=== PATIENT | female | born 1990 | race Caucasian/White ===

== ENCOUNTER 2021-10-15 12:07 | Outpatient (CLI) | payer OTHER, SELFPAY ==
[2021-10-15 12:28] LABS: Add Urine Microscopic? YES; Appearance Urine Clear (Clear); Bilirubin Urine Negative (Negative); Blood Urine 1+ (Negative); Color Urine Colorless (Yellow); Glucose Urine UA Negative (Negative); Ketones Urine Negative (Negative); Leukocyte Esterase Ur Negative LEU/UL (NEGATIVE); Mucus Urine Rare /lpf; Nitrate Urine Negative (Negative); Protein Urine Negative (Negative); RBC Urine 0-2 /hpf (0-2); Urobilinogen Urine Negative mg/dL (<2.0); WBC Urine 0-3 /hpf (0-3)
[2021-10-15 12:35] LABS: Specific Grav Ur 1.003 (1.001-1.035)
== END 2021-10-15 12:08 | disposition home or self-care (01) ==
PROVIDERS: PCP Physician Assistant; Visit Provider Physician Assistant
DX: R30.0 Dysuria (principal)
CPT/HCPCS: 81001; 87086

== ENCOUNTER 2022-06-30 06:47 | Outpatient (CLI) | payer OTHER, SELFPAY ==
[2022-06-30 07:22] LABS: Basophils Percent Auto 0.4 % (0.2-1.2); Eosinophils Absolute Auto 0.1 K/mm3 (0-0.3); Eosinophils Percent Auto 0.9 % (0-4.4); Hematocrit 41.4 % (37.0-47.0); Hemoglobin 14.4 g/dL (12.0-15.0); Immature Granulocyte Absolute 0.02 K/mm3 (0.00-0.031); Immature Granulocyte Percent A 0.3 % (0-0.5); Lymphocytes Absolute Auto 2.68 K/mm3 (0.9-3.2); Lymphocytes Percent Auto 38.7 % (18.3-44.2); Mean Corpuscular HGB Conc 34.8 g/dl (32-36); Mean Corpuscular Hemoglobin 29.9 pg (26-34); Mean Corpuscular Volume 86.1 fl (80-100); Mean Platelet Volume 9.3 fl (7.4-10.4); Monocytes Absolute Auto 0.4 K/mm3 (0.1-0.6); Monocytes Percent Auto 5.2 % (2.6-8.5); Neutrophils Absolute Auto 3.8 K/mm3 (1.3-6.7); Neutrophils Percent Auto 54.5 % (45.5-73.1); Platelet Count Result 222 k/mm3 (150-375); Red Blood Count 4.81 M/mm3 (4.2-5.4); Red Cell Distribution Width 12.2 % (11.5-14.5); White Blood Count 6.9 K/mm3 (4.5-10.0)
[2022-06-30 08:27] LABS: Vitamin D 25 Hydroxy 51.9 ng/mL
[2022-06-30 09:02] LABS: Alanine Aminotransferase 19 U/L (6-35); Albumin Level 4.6 g/dL (3.5-5.1); Alkaline Phosphatase 50 U/L (38-126); Anion Gap 9 mmol/L (8-16); Aspartate Amino Transferase 22 U/L (14-36); Bilirubin,Total 0.7 mg/dL (0.2-1.3); Blood Urea Nitrogen 12 mg/dL (7-17); Calcium 8.9 mg/dL (8.4-10.2); Carbon Dioxide 25 mmol/L (22-30); Chloride 106 mmol/L (98-107); Cholesterol 182 mg/dL (0-200); Estimated Glomerular Filt Rate > 60; Glucose 96 mg/dL (65-110); HDL Direct 38 mg/dL; Potassium 4.4 mmol/L (3.4-5.0); Sodium 140 mmol/L (137-145); Triglycerides 129 mg/dL (<150)
[2022-06-30 09:30] LABS: LDL Cholesterol Direct 106 mg/dL
[2022-06-30 10:11] LABS: Folic Acid > 20.0 ng/mL (2.76->20)
== END 2022-06-30 06:48 | disposition home or self-care (01) ==
LOC: ANHLAB 06:48
PROVIDERS: PCP Physician Assistant; Visit Provider Physician Assistant
DX: E55.9 Vitamin D deficiency, unspecified (principal); Z00.00 Encounter for general adult medical examination without abnormal findings
CPT/HCPCS: 36415; 80053; 80061; 82306; 82607; 82746; 84443; 85025

== ENCOUNTER 2022-07-22 12:54 | Outpatient (CLI) | payer OTHER, SELFPAY ==
[2022-07-22 13:51] LABS: Influenza A QL RT-PCR Positive (Negative); Influenza B QL RT-PCR Negative (Negative); RSV RNA, RT-PCR Negative (Negative); SARS-CoV-2 RNA PCR Negative
== END 2022-07-22 12:55 | disposition home or self-care (01) ==
LOC: ANHLAB 12:56
PROVIDERS: PCP Physician Assistant; Visit Provider Physician Assistant
DX: R68.89 Other general symptoms and signs (principal); Z20.822 Contact with and (suspected) exposure to COVID-19
CPT/HCPCS: 87637

== ENCOUNTER 2024-04-25 07:40 | Outpatient (CLI) | payer OTHER, SELFPAY ==
--- NOTE | 2024-05-06 14:40 | WPDHOMESLEEP ---
Sleep Study - Home Unattended Date of Study: 04/25/24 Ordering Provider: Lelo Hinojosa MD Interpreting Provider: Debbie Nunn MD Home Sleep Study Type: Watch PAT Height: 1.7 m Weight: 86.183 kg Body Mass Index: 29.7 Neck Circumference (inches): 14 Henniker: 0 Reason for Sleep Study Hypersomnolence Sleep History Paty Carrazna is a 34-year-old female with a history of respiratory effort related arousals, RERAs, per her primary care office note 06/27/2022. She had a recent diagnosis of hypertension at that visit. I do not see any old sleep studies documenting RERAs. Her main complaints now include loud snoring, witnessed apneas, and choking and/or gasping at night. She has morning headaches and nocturnal heartburn. She does not wake at night to urinate, does not wake with a dry mouth or sore throar,. She does not have difficulty breathing while sleeping on her back. The sleep questionnaire now being used by our sleep lab is performed by the patient by cell phone. The report does not have any responses for questions regarding daytime sleepiness, restless leg symptoms, circadian rhythm questions, parasomnias, or lifestyle questions. The Henniker recorded for this test is 0, and the YUMIKO, Insomnia Severity Inventory, is 0, with no responses entered for these questions. If she returns for testing, she needs to complete a sleep questionnaire with more detailed information related to other features of her sleep as well as an Henniker Sleepiness Scale. [facility] Past Medical History Medical History Allergies Anxiety GERD (gastroesophageal reflux disease) IBS (irritable bowel syndrome) Migraine Surgical History Surgical History H/O colonoscopy 2013 H/O sinus surgery H/O wisdom tooth extraction History of esophagogastroduodenoscopy (EGD) Hx of IWONA Family History Family History Mother Patient's mother is in good health Family history of migraine headaches Sibling Family history of migraine headaches Grandparent Acute myocardial infarction Heart disease Diabetes mellitus Hypertension Father Diabetes mellitus Hypertension Social History Social History Smoking status: Never smoker Second hand tobacco smoke exposure: No Alcohol intake: current Substance use: unknown Lack of Transportation: No Lack of Food: Never True Current Housing: I Have Housing Concerned About Future Housing: No Difficulty Paying Gas/Electric Bills: No Difficulty Paying for Meds: No Currently Unemployed: No Education: Master's Degree or Higher Difficulty w/ Childcare or Family Care: No Medications Home Medications Medication Instructions Recorded Confirmed Type calcium carbonate (Tums E-X) 300 mg PO BID PRN 08/22/21 07/23/23 History prenat.vits,cm,ney-remn-oxtkt 1 tablet PO DAILY 08/22/21 07/23/23 History rimegepant 75 mg disintegrating 75 mg PO ONCE PRN 02/18/22 07/23/23 History tablet (Nurtec ODT) rabeprazole 20 mg tablet,delayed 20 mg PO BID #180 tabs 11/18/22 07/23/23 Rx release rizatriptan 10 mg tablet See Rx Instructions PO .COMPLEX 11/21/22 07/23/23 Rx #27 tabs lorazepam 0.5 mg tablet 0.5 mg PO QHS PRN anxiety #90 tabs 11/25/22 07/23/23 Rx methylprednisolone 4 mg tablets in See Rx Instructions PO PER PKG DIR 06/09/23 07/23/23 Rx a dose pack (Medrol (Efrain)) #21 ea amitriptyline 25 mg tablet 25 mg PO QHS #90 tabs 12/23/23 Rx azelastine 137 mcg (0.1 %) nasal 1 spray intranasal Q12H #30 mL 12/23/23 Rx spray cetirizine 10 mg tablet (Zyrtec) 10 mg PO DAILY PRN allergy 12/23/23 Rx symptoms #90 tabs cyclobenzaprine 10 mg tablet 10 mg PO QHS PRN muscle spasm #20 12/23/23 Rx tabs famotidine 40 mg tablet 40 mg PO QHS #90 tabs 12/23/23 Rx metoprolol succinate 25 mg
[2024-05-06 21:08] VITALS: BMI 29.7
== END 2024-04-26 13:51 | disposition home or self-care (01) ==
PROVIDERS: Visit Provider Internal Medicine
DX: G47.10 Hypersomnia, unspecified (principal)
CPT/HCPCS: 95800